=== PATIENT | female | born 1960 | race Caucasian/White ===

== ENCOUNTER 2017-08-11 05:40 | Day surgery (SDC) | payer BC ==
[2017-08-11] VITALS (11 sets, daily range): BP systolic 112–147; BP diastolic 56–71; PULSE 85–102; RESP 12–22; Ht 154.9 cm; Wt 77.6 kg
[~2017-08-11] VITALS: Ht 154.9 cm; Wt 77.6 kg
[~2017-08-11 05:40] MED LIST: FLUO20CA38 PO; LISI20TA11 PO
[2017-08-11] MEDS ORDERED: BUPIVACAINE 0.5% (SDV) 30 ML INJ ONE (06:31)
[2017-08-11] MEDS ORDERED: LIDOCAINE 1% (MPF) 30 ML INJ ONE (06:31)
[2017-08-11] MEDS ORDERED: DEXAMETHASONE 4 MG/ML 1 ML INJ ONE (06:31)
[2017-08-11] MEDS ORDERED: POLYMYXIN/BACITRACIN 1L IRRIG ONE (06:32)
--- NOTE | 2017-08-11 07:05 | HPN ---
Date/Time of Note Date/Time of Note DATE: 08/11/17 TIME: 07:05 Interval H&P Admission Note Pt. seen H&P reviewed: No system changes DERIK RICK DPM Aug 11, 2017 07:05
[2017-08-11] MEDS ORDERED: FENTAnyl 50 MCG/ML VIAL ONE (07:08)
[2017-08-11] MEDS ORDERED: CEFAZOLIN 1 GM INJ ONE (07:08)
[2017-08-11] MEDS ORDERED: PROPOFOL 20 ML ONE (07:08)
[2017-08-11] MEDS ORDERED: MIDAZOLAM 1 MG/ML 2 ML INJ ONE (07:09)
[2017-08-11] MEDS ORDERED: DEXAMETHASONE 4 MG/ML 1 ML INJ INJ ONE (07:15)
[2017-08-11] MEDS ORDERED: POLYMYXIN/BACITRACIN 1L IRRIG IRR ONE (07:15)
[2017-08-11] MEDS ORDERED: LIDOCAINE 1% (MPF) 30 ML INJ INJ ONE (07:15)
[2017-08-11] MEDS ORDERED: BUPIVACAINE 0.5% (MPF) 30 ML INJ INJ ONE (07:15)
[2017-08-11] MEDS ORDERED: ONDANSETRON 4 MG INJ ONE (07:27)
[2017-08-11] MEDS ORDERED: METOCLOPRAMIDE 10 MG INJ ONE (07:27)
[2017-08-11] MEDS ORDERED: SUCCINYLCHOLINE CHLORIDE 100 MG/5 ML SYG IV ONE (07:27)
[2017-08-11] MEDS ORDERED: HYDROmorphONE (0.2 MG/ML) 10ML SYG IV PRN (07:30)
[2017-08-11] MEDS ORDERED: ONDANSETRON 4 MG INJ IV PRN (07:30)
[2017-08-11] MEDS ORDERED: LABETALOL HCL 20MG INJ IV PRN (07:30)
[2017-08-11] MEDS ORDERED: FENTAnyl 50 MCG/ML VIAL IV PRN ×2 (07:30)
[2017-08-11] MEDS ORDERED: MEPERIDINE 25 MG INJ IV PRN (07:30)
[2017-08-11] MEDS ORDERED: hydrALAzine 20 MG INJ IV PRN (07:30)
[2017-08-11] MEDS ORDERED: KETOROLAC 30 MG INJ ONE (08:55)
[2017-08-11] MEDS: HYDROmorphONE (0.2 MG/ML) 10ML SYG IV PRN ×4 (09:13→09:36)
--- NOTE | 2017-08-11 12:10 | RADRPT ---
PROCEDURE: Intraoperative imaging of the right foot with fluoroscopy. CLINICAL INDICATION: Right foot pain. Intraoperative. TECHNIQUE: Images of the right foot were obtained in the operating room with an image intensifier. No radiologist was in attendance. Fluoroscopy time is 11 seconds and 26 images were obtained. COMPARISON: No prior study is available for comparison. FINDINGS: Images demonstrate surgical instruments overlying the right foot. A screw is noted in the first tars ometatarsal joint. IMPRESSION: 1. Intraoperative imaging of the right foot. RPTAT: QQ .Romaine Chaves MD, MD Date Time Electronically viewed and signed by .Romaine Chaves MD, on 08/11/2017 12:10 .R/
--- NOTE | 2017-08-12 01:42 | OPR ---
DATE OF OPERATION: 08/11/2017 SURGEON: Amber Lopez DPM. ANESTHESIOLOGIST: Dr. Gardner. ANESTHESIA: General. PREOPERATIVE DIAGNOSIS: Painful bunion with hallux valgus, right foot. POSTOPERATIVE DIAGNOSIS: Painful bunion with hallux valgus, right foot. OPERATION PERFORMED: Bunionectomy with the Lapidus procedure, right foot. OPERATIVE PROCEDURE: The patient was brought into the operating room, placed on the table in a secure supine position. Cardiac monitoring, IV sedation and an ankle pneumatic tourniquet were utilized for this case. Preoperatively, a total of 20 mL of 0.5 percent Marcaine plain mixed with 2 percent lidocaine plain were infiltrated into the right foot in the form of a Fleming block. Upon achieving anesthesia, the right foot and leg were prepped and draped in the usual sterile manner. The ankle pneumatic tourniquet was inflated to 250 mmHg. Procedure #1 was then performed: A bunionectomy with Lapidus procedure, right foot. A 4 cm incision was placed along the medial aspect of the metatarsophalangeal joint. The incision was deepened. Superficial bleeders were cauterized and bovied as necessary. The linear capsulotomy was then performed. The capsule was reflected dorsally and plantarly, exposing the metatarsophalangeal joint. A lateral release was performed. At the lateral ligaments at the metatarsophalangeal joint, the incision was further made proximally to the level of the metatarsal cuneiform joint. The 1st metatarsal cuneiform joint was identified. A Hintermann forge hand was utilized to open the joint. The cartilaginous surface was denuded with sharp Chris elevator and curettage. All cartilaginous surfaces on both the medial cuneiform and base of the 1st metatarsal were denuded of cartilage. The bone was fenestrated with a Johnny wire. Temporary fixation was achieved with a 0.062 Johnny wire. Intraoperative fluoroscopy was utilized to check position and alignment. Good reduction of the metatarsus primus varus angle was noted intraoperatively with fluoroscopy. The 1st screw was inserted from dorsal distal to proximal plantar medial. The size of the screw was a 36 mm x 4.0 mm cannulated Marion screw. A 2nd screw was inserted from proximal dorsal to distal plantar lateral. Again, intraoperative fluoroscopy was utilized for proper screw placement. The screw utilized was a 38 mm x 4.0 mm cannulated Marion screw. A final FluoroScan was taken after fixation and good reduction of the metatarsus primus varus angle was noted. The surgical site was irrigated with sterile saline mixed with bacitracin solution. At this point, the capsule was closed with 2-0 Vicryl simple interrupted sutures. Subcutaneous tissue closed with 4-0 Vicryl simple interrupted sutures and the skin edges were reapproximated with a running 3-0 Prolene subcuticular stitch. The dressing consisted of quarter-inch Steri-Strips, tincture of benzoin, Xeroform gauze, 4 x 4 gauze, 4- inch Kerlix, and 2-inch Coban, a compressive dressing. A posterior nonweightbearing splint was applied intraoperatively. The patient tolerated the above procedure well, left the OR with vital signs stable and satisfactory. The patient will follow up 1 week postop. Dictated By: Amber Lopez DPM /[email or web address]/[email or web address] /Document#: [id number]
== END 2017-08-11 10:43 | disposition home or self-care (01) ==
LOC: SDS 05:40
PROVIDERS: ATTEND Podiatrist Primary Podiatric Medicine
DX: M20.11 Hallux valgus (acquired), right foot (principal); M21.611 Bunion of right foot; I10 Essential (primary) hypertension; E78.5 Hyperlipidemia, unspecified; K21.9 Gastro-esophageal reflux disease without esophagitis; F32.9 Major depressive disorder, single episode, unspecified; E78.1 Pure hyperglyceridemia; E66.9 Obesity, unspecified; Z68.32 Body mass index [BMI] 32.0-32.9, adult; Z86.010 Personal history of colon polyps; Z82.3 Family history of stroke; Z87.891 Personal history of nicotine dependence
CPT/HCPCS: 28297; 73630; C1713; J0690; J1100; J1170; J1885; J2175; J2250; J2405; J2765; J3010; L4386; Z7512; Z7610